=== PATIENT | male | born 1995 | race Hispanic/Latino ===

== ENCOUNTER 2020-01-31 09:00 | Emergency (ER) | payer SELFPAY ==
--- NOTE | 2020-01-31 09:32 | RAD ---
Exam: XR Ankle Rt 3 View STANDARD HISTORY: Right foot and ankle pain COMPARISON: None FINDINGS: No acute fracture, dislocation, or other acute osseous abnormality is identified. Minimal subcutaneous soft tissue swelling is seen about the right ankle. IMPRESSION: No acute osseous abnormality is identified.
--- NOTE | 2020-01-31 09:33 | RAD ---
Exam: XR Foot Rt 3 View STANDARD HISTORY: Right foot and ankle pain. COMPARISON: None FINDINGS: No acute fracture, dislocation, or other acute osseous abnormality is identified. IMPRESSION: No acute osseous abnormality is identified.
== END 2020-01-31 11:28 | disposition home or self-care (01) ==
LOC: ERS 09:00
DX: S93.401A Sprain of unspecified ligament of right ankle, initial encounter (principal); F17.210 Nicotine dependence, cigarettes, uncomplicated; X50.1XXA Overexertion from prolonged static or awkward postures, initial encounter; Y93.39 Activity, other involving climbing, rappelling and jumping off